=== PATIENT | female | born 1975 | race Two or more races ===

== ENCOUNTER 2018-04-23 16:03 | Emergency (ER) | payer OTHER ==
[~2018-04-23] VITALS: Ht 172.7 cm; Wt 69.4 kg
== END 2018-04-23 22:48 | disposition home or self-care (01) ==
LOC: ER 16:03
DX: J09.X2 Influenza due to identified novel influenza A virus with other respiratory manifestations (principal); B34.9 Viral infection, unspecified; E86.0 Dehydration; R53.1 Weakness

== ENCOUNTER → 2018-04-23 | Emergency (ER) | payer OTHER ==
[~2018-04-23] VITALS: Ht 172.7 cm; Wt 70.3 kg
== END | disposition left against medical advice (07) ==
LOC: ER 00:43
DX: Z53.20 Procedure and treatment not carried out because of patient's decision for unspecified reasons (principal)